=== PATIENT | female | born 1980 | race Caucasian/White ===

== ENCOUNTER 2021-03-29 11:22 | Emergency (ER) | payer OTHER, SELFPAY ==
--- NOTE | 2021-03-29 11:34 | ED.DENTAL ---
HPI - Dental/Oral General Chief complaint: Dental/Oral Stated complaint: swelling gums Time Seen by Provider: 03/29/21 11:34 Source: patient and RN notes reviewed Mode of arrival: ambulatory Limitations: no limitations History of Present Illness HPI Narrative: 41 yo female presnts to the [facility] with Complaints of left upper gum pain for the last 3-4 months. States that she has seen 3 dental providers and her PCM with no answers. States that she has an appointment with an ENT provider next week in [facility] [place], Unsure of provider. States that she had a CT scan done mid February. Has taken Steriods and Antibiotics with no relief. Has been using Listerine mouthwash. Patient does have very poor dentition. Related Data Home Medications Medication Instructions Recorded Confirmed L norgest/e.estradiol-e.estrad 1 tablet DAILY 03/29/21 03/29/21 [Camrese Lo] clonazepam 0.5 mg TID 03/29/21 03/29/21 fluoxetine 20 mg DAILY 03/29/21 03/29/21 lamotrigine 100 mg DAILY 03/29/21 03/29/21 levothyroxine [Euthyrox] 50 mcg DAILY 03/29/21 03/29/21 Allergies Allergy/AdvReac Type Severity Reaction Status Date / Time No Known Allergies Allergy Verified 03/29/21 11:43 Review of Systems Review of Systems: All systems reviewed & are unremarkable except as noted in HPI and below Constitutional: Constitutional: Reports no additional constitutional complaints Eyes: Eyes: Reports no additional eye complaints ENT: Reports as per HPI, Denies change in voice, Reports dental pain (Left upper gum), Denies dry mouth, Denies ear discharge, Denies facial pain, Denies headache(s) and Denies hoarseness Cardiovascular: Cardiovascular: Reports no additional cardiovascular complaints Respiratory: Respiratory: Reports no additional respiratory complaints Gastrointestinal: Gastrointestinal: Reports no additional gastrointestinal complaints Musculoskeletal: Musculoskeletal: Reports no additional musculoskeletal complaints Integumentary/Breasts: Skin/Breast: Reports system reviewed and no additional complaints, except as docu Neurologic: Reports system reviewed and no additional complaints, except as documented Psychiatric: Psychiatric: Reports no additional psychiatric complaints [facility] Family History Family History Other Family history of arthritis Family history of malignant neoplasm Social History Social History Second hand tobacco smoke exposure: Yes Alcohol intake: current Gender identity (if verbalized by the patient): Female Comments At the time of my signature, I reviewed and agree with the nursing past medical, surgical, social, and family history. There is no relevant family history pertinent to the patient complaint. Exam Const: General: alert; No no acute distress (To be in pain) Nutritional Appearance: well nourished and obese morbidly obese Orientation/consciousness: patient oriented x3 HENMT: Head: normal to inspection, normocephalic and atraumatic Ears: hearing grossly normal bilaterally, external ears normal and TM's normal bilaterally General nose exam: Normal external nose present and Normal nares present Face and sinus: normal facial exam Mouth: Yes Normal oral and palatal mucosa present, Yes lip normal, Yes tongue normal, Yes moist mucous membranes, No malodorous breath, No mouth trauma and No muffled voice Teeth and gingiva: abnormal tooth and associated gingiva (Multiple missing molars, left upper no increased swelling or redness), caries, multiple restorations, poor dentition and other (left upper gum, Molors extracted without signs of infection.) Teeth image: 1. No longer in place 2. No longer in place. Gum is without signs of infection. NO pus pocket, swelling or increased redness. Throat: posterior oropharynx normal Eyes: Pupils: Equal, round and reactive pupils present Neck: Neck: normal visual inspectio
[2021-03-29 11:44] VITALS: BP 147/83; PULSE 92; RESP 20; TEMP 36.8; O2SAT 100
[2021-03-29 11:55] VITALS: O2SAT 100
[2021-03-29 11:56] VITALS: BP 147/83; PULSE 92; RESP 20; TEMP 36.8
== END 2021-03-29 11:56 | disposition home or self-care (01) ==
PROVIDERS: Emergency Provider Nurse Practitioner; PCP Nurse Practitioner Psychiatric/Mental Health
DX: K08.89 Other specified disorders of teeth and supporting structures (principal); F41.9 Anxiety disorder, unspecified; F31.9 Bipolar disorder, unspecified
CPT/HCPCS: 99213; G0463

== ENCOUNTER 2021-10-16 13:20 | Emergency (ER) | payer OTHER, SELFPAY ==
[2021-10-16 13:36] VITALS: BP 140/80; PULSE 86; RESP 18; TEMP 36.7; O2SAT 99
--- NOTE | 2021-10-16 13:39 | ED.DENTAL ---
HPI - Dental/Oral General Chief complaint: Dental/Oral Stated complaint: Rt side facial pain Time Seen by Provider: 10/16/21 13:40 Source: patient, RN notes reviewed and old records reviewed Mode of arrival: ambulatory Limitations: no limitations Related Data Home Medications Medication Instructions Recorded Confirmed L norgest/e.estradiol-e.estrad 1 tablet DAILY 03/29/21 10/16/21 [Camrese Lo] clonazepam 0.5 mg TID 03/29/21 10/16/21 fluoxetine 20 mg DAILY 03/29/21 10/16/21 lamotrigine 100 mg DAILY 03/29/21 10/16/21 levothyroxine [Euthyrox] 50 mcg DAILY 03/29/21 10/16/21 Allergies Allergy/AdvReac Type Severity Reaction Status Date / Time No Known Allergies Allergy Verified 10/16/21 13:33 [facility] Family History Family History Other Family history of arthritis Family history of malignant neoplasm Social History Social History Second hand tobacco smoke exposure: Yes Alcohol intake: current Gender identity (if verbalized by the patient): Female Course Vital Signs Vital signs: Vital Signs Temperature 36.7 C 10/16/21 13:36 Pulse Rate 86 10/16/21 13:36 Respiratory Rate 18 10/16/21 13:36 Blood Pressure 140/80 10/16/21 13:36 Pulse Oximetry 99 10/16/21 13:36 Temperature 36.7 C 10/16/21 13:36 Pulse Rate 86 10/16/21 13:36 Respiratory Rate 18 10/16/21 13:36 Blood Pressure 140/80 10/16/21 13:36 Pulse Oximetry 99 10/16/21 13:36 Discharge Plan Discharge Prescriptions: No Action L norgest/e.estradiol-e.estrad [Camrese Lo] 0.10 mg-20 mcg (84)/10 mcg (7) tablets,dose pack,3 month 1 tablet DAILY RF: 0 clonazepam 0.5 mg tablet 0.5 mg TID RF: 0 levothyroxine [Euthyrox] 50 mcg tablet 50 mcg DAILY RF: 0 fluoxetine 20 mg capsule 20 mg DAILY RF: 0 lamotrigine 25 mg tablet 100 mg DAILY RF: 0
--- NOTE | 2021-10-16 13:54 | ED.GENADULT ---
HPI - General Adult General Chief complaint: Dental/Oral Stated complaint: Rt side facial pain Time Seen by Provider: 10/16/21 13:40 Source: patient, RN notes reviewed and old records reviewed Mode of arrival: ambulatory Limitations: no limitations History of Present Illness HPI narrative: 41 year old female who presents to [facility] with complaints of right facial discomfort, right ear pain, facial pressure, gum soreness since Sunday. Patient states that she has noted area to right upper gumline that is tender to touch with small bump noted concerned of abscess. She reports that she has not had any fevers chills or sweats or any body aches, has not had covid or flu vaccinations. She states also that she has had some cough and runny nose but that is nothing new for her. Patient has taken some left over Amoxicillin and Tylenol for her symptoms. MD complaint: right sided facial pain, Onset (ago): day(s) (2) Location: face Severity scale (1-10): 4 Quality: aching Treatments prior to arrival: other (Tylenol and left over Amoxicillin) Related Data Home Medications Medication Instructions Recorded Confirmed L norgest/e.estradiol-e.estrad 1 tablet DAILY 03/29/21 10/16/21 [Camrese Lo] clonazepam 0.5 mg TID 03/29/21 10/16/21 fluoxetine 20 mg DAILY 03/29/21 10/16/21 lamotrigine 100 mg DAILY 03/29/21 10/16/21 levothyroxine [Euthyrox] 50 mcg DAILY 03/29/21 10/16/21 phentermine 30 mg PO DAILY 10/16/21 10/16/21 Allergies Allergy/AdvReac Type Severity Reaction Status Date / Time fluticasone [From Flonase] AdvReac Mild Other Verified 10/16/21 13:48 Review of Systems Review of Systems: CONSTITUTIONAL: Denies fever, chills, or sweats. EYES: Denies visual changes, redness, or discharge. ENT: Positive for rhinorrhea, congestion,no sore throat,right otalgia.right facial pressure soreness right upper gum CARDIOVASCULAR: Denies chest pain, palpitations, or edema. RESPIRATORY: Positive for cough denies dyspnea. GASTROINTESTINAL: Denies abdominal pain, nausea, vomiting, or diarrhea. GENITOURINARY: Denies dysuria or hematuria. SKIN: Denies rash or itching. MUSCULOSKELETAL: Denies back pain, joint pain, or myalgia. NEUROLOGIC: Denies headache, numbness, or weakness. PSYCHIATRIC: Positive history of anxiety or depression. All systems reviewed & are unremarkable except as noted in HPI and below PMFSH Past Medical History Medical History (Updated 10/19/21 @ 08:20 by Iqra Landers NP) Anxiety and depression Bipolar 1 disorder Deviated septum History of sinus problem PTSD (post-traumatic stress disorder) Tobacco abuse Surgical History Surgical History (Updated 10/16/21 @ 13:57 by Iqra Landers NP) H/O tubal ligation History of bilateral carpal tunnel release History of cholecystectomy Previous section Family History Family History Other Family history of arthritis Family history of malignant neoplasm Social History Social History (Updated 10/19/21 @ 07:54 by Iqra Landers NP) Smoking packs per day: 1 Smoking cigarettes per day: 20.0 Smoking status: Current every day smoker Tobacco type: cigarettes Second hand tobacco smoke exposure: Yes Alcohol intake: current Substance use: unknown Living arrangements: with family Gender identity (if verbalized by the patient): Female Comments At time of signature agree with nursing documentation of past medical, surgical, social, and family history. There is no pertinent family history relevant to presenting complaint Exam Narrative: GENERAL: Well-appearing, well-nourished, and in no acute distress.anxious HEAD: Normocephalic, atraumatic. EYES: PERRLA and EOMI. ENT: Nares patent with clear rhinorrhea no epistaxis. Mucous membranes moist.TM's normal with no redness or bulging good light reflex, throat pink with no lesions or exudates no tonsil enlargement, post nasal drainage present, small whitish
== END 2021-10-16 14:21 | disposition home or self-care (01) ==
PROVIDERS: Emergency Provider Registered Nurse; PCP Registered Nurse
DX: R51.9 Headache, unspecified (principal); J06.9 Acute upper respiratory infection, unspecified; F17.210 Nicotine dependence, cigarettes, uncomplicated; F31.9 Bipolar disorder, unspecified; F41.9 Anxiety disorder, unspecified
CPT/HCPCS: 99213; G0463

== ENCOUNTER 2022-01-05 17:27 | Emergency (ER) | payer OTHER, SELFPAY ==
--- NOTE | 2022-01-05 17:35 | ED.URI ---
HPI - URI/Sore Throat General Chief Complaint: Upper Respiratory Infection Stated Complaint: congestion,headache Time Seen by Provider: 01/05/22 17:45 Source: patient and RN notes reviewed Mode of arrival: ambulatory Limitations: no limitations History of Present Illness HPI Narrative: 42-year-old female presents with concern for sinus pain, pressure, facial pain, purulent drainage. She reports history of chronic sinusitis for which she sees an ENT. She reports she is not able to see her ENT for over a week. She reports trying several [id number] medications including Sudafed without relief. MD elicited complaint: rhinorrhea and nasal congestion Related Data Home Medications Medication Instructions Recorded Confirmed L norgest/e.estradiol-e.estrad 1 tablet DAILY 03/29/21 01/05/22 [Camrese Lo] clonazepam 0.5 mg TID 03/29/21 01/05/22 fluoxetine 20 mg DAILY 03/29/21 01/05/22 levothyroxine [Euthyrox] 50 mcg DAILY 03/29/21 01/05/22 phentermine 30 mg PO DAILY 10/16/21 01/05/22 albuterol sulfate 2 inh INHALATION DIRECTED 01/05/22 01/05/22 lamotrigine 100 mg PO DAILY 01/05/22 01/05/22 loratadine 10 mg PO DAILY 01/05/22 01/05/22 omeprazole 20 mg PO DAILY 01/05/22 01/05/22 Allergies Allergy/AdvReac Type Severity Reaction Status Date / Time fluticasone [From Flonase] AdvReac Mild Other Verified 01/05/22 17:47 Review of Systems Review of Systems: CONSTITUTIONAL: Denies malaise, chills, sweats, or fever. EYES: Denies visual changes, redness, or discharge. ENT: Reports purulent rhinorrhea, congestion, sinus pain. Denies otalgia and sore throat. CARDIOVASCULAR: Denies chest pain, palpitations, or edema. RESPIRATORY: Denies cough. Denies dyspnea. GASTROINTESTINAL: Denies abdominal pain, nausea, vomiting, diarrhea SKIN: Denies rash or itching. MUSCULOSKELETAL: Denies myalgia. NEUROLOGIC: Denies headache. All systems reviewed & are unremarkable except as noted in HPI and below PMFSH Past Medical History Medical History (Updated 01/05/22 @ 17:58 by Cristin Moser NP) Anxiety and depression Bipolar 1 disorder Deviated septum History of sinus problem PTSD (post-traumatic stress disorder) Tobacco abuse Surgical History Surgical History (Updated 10/16/21 @ 13:57 by Iqra Landers NP) H/O tubal ligation History of bilateral carpal tunnel release History of cholecystectomy Previous section Family History Family History Other Family history of arthritis Family history of malignant neoplasm Social History Social History (Updated 10/19/21 @ 07:54 by Iqra Landers NP) Smoking packs per day: 1 Smoking cigarettes per day: 20.0 Smoking status: Current every day smoker Tobacco type: cigarettes Second hand tobacco smoke exposure: Yes Alcohol intake: current Substance use: unknown Gender identity (if verbalized by the patient): Female Comments At time of signature, agree with nursing past medical, surgical, social and family history. There is no relevant family history pertinent to the presenting complaint Exam Narrative: GENERAL: Well-appearing, well-nourished, and in no acute distress. HEAD: Normocephalic EYES: PERRLA, conjunctivae clear ENT: Nares clear, turbinates edematous and erythematous, sinus tenderness. Mucous membranes moist. TM pearly de with dull light reflex bilaterally; no tragal tenderness. Oropharynx not erythematous without lesions. Tonsils not enlarged and without exudate, no drooling, no hoarseness, no trismus, uvula midline. NECK: Supple. No lymphadenopathy CHEST: Clear to auscultation, breath sounds equal. No wheezing, rhonchi, rales, or stridor. No respiratory distress, speaks in full sentences. HEART: Regular rate and rhythm. No murmur heard. SKIN: Warm, dry, no rash. NEURO: Alert and oriented x3. PSYCH: Normal mood and affect Course Course Emergency Course: Patient is aware of diagnosis, understand
[2022-01-05 17:39] VITALS: BP 133/83; PULSE 88; RESP 18; TEMP 36.5; O2SAT 100
== END 2022-01-05 18:03 | disposition home or self-care (01) ==
PROVIDERS: Emergency Provider Nurse Practitioner; PCP Registered Nurse
DX: J32.9 Chronic sinusitis, unspecified (principal); F17.210 Nicotine dependence, cigarettes, uncomplicated; F41.9 Anxiety disorder, unspecified; F31.9 Bipolar disorder, unspecified; F43.10 Post-traumatic stress disorder, unspecified
CPT/HCPCS: 99213; G0463

== ENCOUNTER 2023-06-18 15:48 | Outpatient (CLI) | payer OTHER, SELFPAY ==
--- NOTE | ~2023-06-18 | CT_ITS ---
EXAMINATION: CT sinus wo con DATE: 06/18/2023 16:15 INDICATION: Chronic sinusitis TECHNIQUE: Computed tomography (CT) of the paranasal sinuses was performed without intravenous contra st. The dose-length product was 329.05 mGy-cm. Automated exposure control and iterative reconstructio n technique were employed. COMPARISON: CT dated 02/04/2018 FINDINGS: There is mucoperiosteal reaction of the right maxillary sinus. No significant mucosal thick ening. Ostiomeatal units are patent bilaterally. No significant nasal septal deviation. No air-fluid levels. Mastoids are pneumatized. IMPRESSION: 1. No significant sinus disease. Reviewed, dictated and finalized at location B.
== END 2023-06-18 15:49 | disposition home or self-care (01) ==
PROVIDERS: PCP Nurse Practitioner Family; Visit Provider Otolaryngology
DX: J32.9 Chronic sinusitis, unspecified (principal)
CPT/HCPCS: 70486

== ENCOUNTER 2023-07-27 07:59 | Outpatient (CLI) | payer OTHER, SELFPAY ==
--- NOTE | ~2023-07-27 | XR_ITS ---
EXAMINATION: XR mandible min 4V DATE: 07/27/2023 08:26 INDICATION: Lump at left anterior mandible. TECHNIQUE: 5 views of the mandible were obtained. COMPARISON: CT sinuses 06/18/2023 FINDINGS: Bone alignment is normal. No fracture. The temporomandibular joints are normal. There are m ultiple absent teeth. Dental restorations are noted. IMPRESSION: 1. No abnormal mass. Reviewed, dictated and finalized at location E. IMPRESSION: 1. No abnormal mass.
== END 2023-07-27 08:00 | disposition home or self-care (01) ==
LOC: ANHIMG 08:02
PROVIDERS: PCP Nurse Practitioner Family; Visit Provider Nurse Practitioner Family
DX: R68.84 Jaw pain (principal)
CPT/HCPCS: 70110

== ENCOUNTER 2023-12-21 11:28 | Emergency (ER) | payer OTHER, SELFPAY ==
--- NOTE | 2023-12-21 11:40 | ED.URI ---
HPI - URI/Sore Throat General Chief Complaint: Dental/Oral Stated Complaint: Sinus Infection and Dental Pain Time Seen by Provider: 12/21/23 11:40 Source: patient Mode of arrival: ambulatory Limitations: no limitations History of Present Illness HPI Narrative: Patient is a 43-year-old female who presents with 3 days of worsening sinus pressure and facial pain. Patient had tooth pulled on Sunday at dental clinic. Patient was not sent home on antibiotics. Patient reports better taste in mouth. Reports increased congestion. Has history of sinus infections and dental abscess Related Data Home Medications Medication Instructions Recorded Confirmed levothyroxine 50 mcg tablet 50 mcg DAILY 03/29/21 12/21/23 (Euthyrox) loratadine 10 mg tablet 10 mg PO DAILY 01/05/22 12/21/23 omeprazole 20 mg capsule,delayed 20 mg PO DAILY 01/05/22 12/21/23 release fluoxetine 40 mg capsule 40 mg PO DAILY 12/21/23 12/21/23 Allergies Allergy/AdvReac Type Severity Reaction Status Date / Time fluticasone [From Flonase] AdvReac Mild Other Verified 12/21/23 12:47 Review of Systems Review of Systems: All systems reviewed & are unremarkable except as noted in HPI and below Constitutional: Constitutional: Denies body ache(s), Denies chills, Denies fatigue, Denies fever(s), Denies headache(s), Denies malaise and Denies weakness Eyes: Eyes: Denies blurry vision, Denies itchy eyes and Denies loss of vision ENT: Denies otalgia, Reports facial pain, Denies headache(s), Reports nasal congestion, Reports sinus pain, Reports sinus pressure and Denies sore throat Cardiovascular: Cardiovascular: Denies chest pain, Denies irregular heart rhythm and Denies dyspnea Respiratory: Respiratory: Denies cough and Denies dyspnea Gastrointestinal: Gastrointestinal: Denies abdominal pain, Denies diarrhea, Denies nausea and Denies vomiting Musculoskeletal: Musculoskeletal: Denies back pain, Denies myalgias and Denies arthralgias Integumentary/Breasts: Skin/Breast: Denies pruritus and Denies rash Neurologic: Denies headache(s), Denies loss of vision and Denies weakness Psychiatric: Psychiatric: Reports no additional psychiatric complaints Endocrine: Endocrine: Denies fatigue Allergic/Immunologic: Allergic/Immunologic: Denies itchy eyes PMFSH Past Medical History Medical History Anxiety and depression Bipolar 1 disorder Deviated septum History of sinus problem PTSD (post-traumatic stress disorder) Tobacco abuse Surgical History Surgical History H/O tubal ligation History of bilateral carpal tunnel release History of cholecystectomy Previous section Family History Family History Other Family history of arthritis Family history of malignant neoplasm Social History Social History Smoking packs per day: 1 Smoking cigarettes per day: 20.0 Smoking status: Current every day smoker Tobacco type: cigarettes Second hand tobacco smoke exposure: Yes Alcohol intake: current Substance use: unknown Living arrangements: with family Gender identity (if verbalized by the patient): Female Comments At time of signature, agree with nursing past medical, surgical, social and family history. There is no relevant family history pertinent to the presenting complaint. Exam Const: General: cooperative, healthy appearing, comfortable, no acute distress and well nourished Nutritional Appearance: well nourished Orientation/consciousness: patient oriented x3 Limitations: no limitations HENMT: Head: normal to inspection, normocephalic and atraumatic Ears: hearing grossly normal bilaterally, external ears normal, TM's normal bilaterally, EAC's normal and no periauricular adenopathy Face/Nose/Sinus: Normal external no
[2023-12-21 12:05] VITALS: BP 107/55; PULSE 70; RESP 18; TEMP 36.3; O2SAT 100
== END 2023-12-21 13:17 | disposition home or self-care (01) ==
PROVIDERS: Emergency Provider Nurse Practitioner Family; PCP Family Medicine
DX: K04.7 Periapical abscess without sinus (principal); F17.210 Nicotine dependence, cigarettes, uncomplicated; F41.9 Anxiety disorder, unspecified; F32.A Depression, unspecified
CPT/HCPCS: 99213; G0463